=== PATIENT | female | born 1985 | race Caucasian/White ===

== ENCOUNTER → 2019-09-29 | Outpatient (CLI) | payer BC ==
[~2019-09-29] MED LIST: ALPR0.5T7 PO; IBUP-1222 PO; OXYC-302 PO; PREN1TAB60 PO
== END | disposition home or self-care (01) ==
LOC: CFH 10:48
PROVIDERS: ATTEND Nurse Practitioner Family
DX: Z12.31 Encounter for screening mammogram for malignant neoplasm of breast (principal); N64.89 Other specified disorders of breast; Z80.3 Family history of malignant neoplasm of breast
CPT/HCPCS: 77063; 77067

== ENCOUNTER 2020-01-26 13:10 | Day surgery (SDC) | payer BC ==
[~2020-01-26] VITALS: Ht 167.6 cm; Wt 94.7 kg
[2020-01-26] MEDS ORDERED: LACTATED RINGERS 1,000 ML IV ONE (13:26)
[2020-01-26] MEDS ORDERED: CHLORHEXIDINE 15 ML UDC MM STA (13:27)
[2020-01-26] MEDS ORDERED: SCOPOLAMINE 1MG PATCH TD ONE (13:28)
[2020-01-26] MEDS ORDERED: GABAPENTIN 300 MG CAPSULE PO STA (13:28)
[2020-01-26] MEDS ORDERED: ACETAMINOPHEN 500 MG TABLET PO STA (13:28)
[2020-01-26 13:37] VITALS: BP 120/86
[2020-01-26 14:03] LABS: BASOPHILS # (AUTO) 0.04 x10^3/uL (0-0.1); BASOPHILS % (AUTO) 0 % (0-1); EOSINOPHILS # (AUTO) 0.09 x10^3/uL (0-0.4); EOSINOPHILS % (AUTO) 1 % (1-7); LYMPHOCYTES # (AUTO) 1.64 x10^3/uL (1-3.4); LYMPHOCYTES % (AUTO) 17 % (22-44); MD NO; MEAN CORPUSCULAR HEMOGLOBIN 28.8 pg (27.0-34.8); MEAN CORPUSCULAR HGB CONC 32.9 g/dL (32.4-35.8); MEAN CORPUSCULAR VOLUME 87.5 fL (80-100); MEAN PLATELET VOLUME 7.8 fL (7.4-10.4); MONOCYTES # (AUTO) 0.57 x10^3/uL (0.2-0.8); MONOCYTES % (AUTO) 6 % (2-9); NEUTROPHILS # (AUTO) 7.06 x10^3/uL (1.8-6.8); NEUTROPHILS % (AUTO) 75 % (42-75); PLATELET COUNT 286 x10^3/uL (130-400); RED BLOOD COUNT 4.52 x10^6/uL (3.82-5.3); RED CELL DISTRIBUTION WIDTH 13.6 % (9.6-15.2)
[2020-01-26 14:11] LABS: ANION GAP 7 mmol/L (5-15); CALCIUM 9.1 mg/dL (8.5-10.1); CHLORIDE 110 mmol/L (98-107); CREATININE 0.57 mg/dL (0.55-1.02)
[2020-01-26] MEDS ORDERED: FENTANYL PF 100 MCG/2ML ONE ×3 (14:17→16:34)
[2020-01-26] MEDS ORDERED: MIDAZOLAM 1 MG/ML, 2ML ONE (14:17)
[2020-01-26] MEDS ORDERED: MISOPROSTOL 200 MCG TABLET ONE (14:46)
[2020-01-26] MEDS ORDERED: SILVER NITRATE STICK TP ONE (14:47)
[2020-01-26] MEDS ORDERED: METHYLERGONOVINE 0.2 MG/ML IM ONE (14:47)
[2020-01-26] MEDS ORDERED: OXYTOCIN 10 UNITS/ML, 1ML ONE (14:47)
[2020-01-26] MEDS ORDERED: VASOPRESSIN 20 UNIT/ML, 1ML ONE (14:48)
[2020-01-26] MEDS ORDERED: LIDOCAINE 1%-EPI 1:100K, 20ML ONE (15:51)
[2020-01-26] MEDS ORDERED: ONDANSETRON 2MG/ML, 2ML ONE (16:00)
[2020-01-26] MEDS ORDERED: GLYCOPYRROLATE 0.2MG/1ML, 5ML ONE (16:00)
[2020-01-26] MEDS ORDERED: ROCURONIUM 10MG/ML,5ML ONE (16:00)
[2020-01-26] MEDS ORDERED: NEOSTIGMINE 1 MG/ML, 10ML ONE (16:00)
[2020-01-26] MEDS ORDERED: CEFAZOLIN 1,000 MG ONE (16:00)
[2020-01-26] MEDS ORDERED: DEXAMETHASONE 4 MG/ML, 1ML ONE (16:00)
[2020-01-26] MEDS ORDERED: SUCCINYLCHOLINE 20 MG/ML, 10ML ONE (16:00)
[2020-01-26] MEDS ORDERED: PROPOFOL 10 MG/ML, 20ML ONE (16:00)
[2020-01-26] MEDS ORDERED: MEPERIDINE/PF 25MG/ML,1ML ONE (16:22)
[2020-01-26] MEDS ORDERED: PROMETHAZINE 25 MG/ML, 1ML IV PRN (16:30)
[2020-01-26] MEDS ORDERED: MEPERIDINE/PF 25MG/ML,1ML IVPush PRN (16:30)
[2020-01-26] MEDS ORDERED: MIDAZOLAM 1 MG/ML, 2ML IV PRN (16:30)
[2020-01-26] MEDS ORDERED: HYDROmorphone 2 MG/ML, 1ML IVPush PRN (16:30)
[2020-01-26] MEDS ORDERED: OXYcodone 5 MG/5 ML ORAL.SOL UDC PO PRN (16:30)
[2020-01-26] MEDS ORDERED: ONDANSETRON 2MG/ML, 2ML IV PRN (16:30)
[2020-01-26] MEDS: FENTANYL PF 100 MCG/2ML IV PRN ×2 (16:39→16:47)
== END 2020-01-26 18:00 | disposition home or self-care (01) ==
LOC: OR 13:10
PROVIDERS: ATTEND Obstetrics & Gynecology Maternal & Fetal Medicine
DX: O02.1 Missed abortion (principal); F41.9 Anxiety disorder, unspecified; J45.909 Unspecified asthma, uncomplicated; Z79.899 Other long term (current) drug therapy; Z90.49 Acquired absence of other specified parts of digestive tract; Z80.3 Family history of malignant neoplasm of breast
CPT/HCPCS: 36415; 59820; 80048; 84702; 85025; 88305; J0330; J0690; J1100; J2175; J2250; J2405; J2704; J2710; J3010; J3490; J7120; J2210; J2590